=== PATIENT | female | born 2000 | race Two or more races ===

== ENCOUNTER 2023-12-04 18:13 | Inpatient (IN) | payer OTHER ==
[~2023-12-04] VITALS: Ht 160 cm; Wt 3.6 kg
[~2023-12-04 18:13] MED LIST: LABETALOL HCL 200 MG TABLET PO SCH; LABETALOL HCL100 MG PO; PRENATABS RX T1 EACH PO
[2023-12-04] MEDS ORDERED: RINGERS SOLUTION,LACTATED 1,000 ML IV SCH (18:30)
[2023-12-04] MEDS ORDERED: ACETAMINOPHEN 500 MG GEL..CAP PO PRN (18:30)
[2023-12-04] MEDS ORDERED: MORPHINE SULFATE 4 MG/ML CARTRIDGE IV PRN (18:45)
[2023-12-04] MEDS ORDERED: FAMOTIDINE/PF 20 MG/2 ML VIAL IV PUSH PRN (18:45)
[2023-12-04 19:05] LABS: HEMATOCRIT 32.9 % (36.0-45.00); HEMOGLOBIN 10.9 g/dL (12.0-15.00); MEAN CELL VOLUME 73.7 fL (80.00-100.00); MEAN CORPUSCULAR HEMOGLOBIN 24.3 pg (27.00-32.0); PLATELET COUNT 242 K/uL (150-450); RED BLOOD COUNT 4.47 M/uL (4.00-6.00); RED CELL DISTRIBUTION WIDTH 13.2 % (11.5-14.5)
[2023-12-04 19:07] LABS: PH,URINE 6.5 (5.0-8.0); URINE APPEARANCE Clear; URINE BILIRRUBIN Negative (NEGATIVE); URINE BLOOD Moderate; URINE COLOR Yellow; URINE GLUCOSE Negative (NEGATIVE); URINE LEUKOCYTE Small; URINE NITRATE Negative; URINE PROTEIN Negative (NEGATIVE); URINE UROBILINOGEN 0.2 E.U./dl
[2023-12-04 19:10] LABS: URINE BACTERIA 278.3 uL (0.0-1933); URINE EPITHELIAL CELLS 38.6 uL (0.0-38.8); URINE WBC 140.6 uL (0.0-23.2)
[2023-12-04 19:18] LABS: URINE RBC 1.6 uL (0.0-20.8)
[2023-12-04 19:24] LABS: INR 0.96; PARTIAL THROMBOPLASTIN TIME 24.7 SECONDS (22.0-34.0); PROTHROMBIN TIME 10.1 SECONDS (9.0-11.5)
[2023-12-04 19:29] LABS: ALBUMIN 2.7 gm/dL (3.4-5.0); BILIRUBIN TOTAL 0.25 mg/dL (0.3-1.2); CALCIUM 9.9 mg/dL (8.5-10.1); CREATININE SERUM 0.79 mg/dL (0.55-1.02); GFR 89.41; GLOBULINA 4.5 G/DL (2.4-3.5); POTASSIUM 4.19 mEq/L (3.5-5.1); TOTAL PROTEIN 7.2 gm/dL (6.4-8.2)
[2023-12-05] MEDS ORDERED: OXYTOCIN 500 ML IV SCH (09:45)
[2023-12-05] MEDS ORDERED: OXYTOCIN 500 ML IV ONE ×2 (10:15→10:45)
[2023-12-05] MEDS ORDERED: MORPHINE SULFATE 4 MG/ML CARTRIDGE IV PRN (14:52)
[2023-12-05] MEDS ORDERED: MEPERIDINE HCL/PF 50 MG/ML VIAL IM PRN (20:15)
[2023-12-05] MEDS ORDERED: OXYTOCIN 1,000 ML IV SCH (20:15)
[2023-12-05] MEDS ORDERED: ONDANSETRON HCL 2 MG/ML VIAL IV PRN (20:15)
[2023-12-05] MEDS ORDERED: CARBOPROST TROMETHAMINE 250 MCG/ML AMPUL IM ONE (21:45)
[2023-12-05] MEDS ORDERED: ERYTHROMYCIN BASE 1 GM TUBE OP ONE (21:45)
[2023-12-05] MEDS ORDERED: OXYTOCIN 10 UNITS/ML VIAL IV ONE (21:45)
[2023-12-06] MEDS ORDERED: ENOXAPARIN SODIUM 40 MG/0.4 ML SYRINGE SUBCUTANEO SCH (09:00)
[2023-12-06] MEDS ORDERED: NIFEDIPINE 30 MG TAB.SA.OSM PO SCH (09:00)
[2023-12-06 09:23] LABS: HEMATOCRIT 25.4 % (36.0-45.00); MEAN CORPUSCULAR HGB CONC 33.1 g/dl (32.0-36.0); PLATELET COUNT 233 K/uL (150-450); RED BLOOD COUNT 3.44 M/uL (4.00-6.00); RED CELL DISTRIBUTION WIDTH 13.1 % (11.5-14.5)
[2023-12-06 09:24] LABS: MEAN CORPUSCULAR HEMOGLOBIN 24.4 pg (27.00-32.0)
[2023-12-06 09:25] LABS: HEMOGLOBIN 8.4 g/dL (12.0-15.00)
[2023-12-06 09:29] LABS: URINE APPEARANCE Clear; URINE BILIRRUBIN Negative (NEGATIVE); URINE BLOOD Small; URINE COLOR Yellow; URINE GLUCOSE Negative (NEGATIVE); URINE LEUKOCYTE Negative; URINE NITRATE Negative; URINE PROTEIN Negative (NEGATIVE)
[2023-12-06 09:31] LABS: URINE BACTERIA 8.8 uL (0.0-1933); URINE RBC 80.1 uL (0.0-20.8)
[2023-12-06 09:42] LABS: ALBUMIN 2.1 gm/dL (3.4-5.0); BILIRUBIN TOTAL 0.51 mg/dL (0.3-1.2); CALCIUM 8.3 mg/dL (8.5-10.1); CREATININE SERUM 0.52 mg/dL (0.55-1.02); GFR 144.87; GLOBULINA 3.3 G/DL (2.4-3.5); POTASSIUM 3.77 mEq/L (3.5-5.1); TOTAL PROTEIN 5.4 gm/dL (6.4-8.2)
[2023-12-06] MEDS ORDERED: KETOROLAC TROMETHAMINE 10 MG TABLET PO NR (10:00)
[2023-12-06] MEDS ORDERED: KETOROLAC TROMETHAMINE 10 MG TABLET PO SCH (14:00)
[2023-12-07] MEDS ORDERED: SOD FERRIC GLUC COMPLX/SUCROSE 125 MG in 0.9 % SODIUM CHLORIDE 100 ML IV SCH (09:00)
[2023-12-07] MEDS ORDERED: SIMETHICONE 125 MG CAPSULE PO SCH (17:00)
[2023-12-07] MEDS ORDERED: DOCUSATE CALCIUM 240 MG CAPSULE PO NR (21:00)
== END 2023-12-08 15:07 | disposition home or self-care (01) | DRG 788 ==
LOC: LDR 18:13 → OB/GYN 12-05 08:57 → LDR 12-05 10:20 → O/R 12-05 20:27 → OB/GYN 12-05 21:36
PROVIDERS: ADMIT Obstetrics & Gynecology Gynecology; ATTEND Obstetrics & Gynecology Gynecology
PROC: 4A1HXCZ Monitoring of Products of Conception, Cardiac Rate, External Approach (ICD-10-PCS; 2023-12-04)
PROC: 10D00Z1 Extraction of Products of Conception, Low, Open Approach (ICD-10-PCS; principal; 2023-12-05 18:45)
DX: O62.2 Other uterine inertia (principal); O33.5XX0 Maternal care for disproportion due to unusually large fetus, not applicable or unspecified; O36.63X0 Maternal care for excessive fetal growth, third trimester, not applicable or unspecified; Z3A.37 37 weeks gestation of pregnancy; Z37.0 Single live birth